=== PATIENT | female | born 1955 | race Native Hawaiian/Other Pacific Islander ===

== ENCOUNTER 2016-09-07 16:10 | Inpatient (IN) | payer BC ==
[~2016-09-07] VITALS: Ht 162.6 cm; Wt 59.0 kg
[~2016-09-07 16:10] MED LIST: LORAZEPAM0.5 MG OR; METOPRL/HCTZ1 TA1 OR
--- NOTE | 2016-09-07 16:30 | NUR ---
PT TO ROOM 1112 VIA WC. PT ALERT AND ORIENTED. ASSESSMENT COMPLETE. IV STARTED TO LEFT WRIST WITH LABS DRAWN. UA COLLECTED. AT BS. DR ESQUIVEL/PATRICIO AT BS. PT C/O MILD ABD PAIN. ORIENTED PT TO ROOM AND CONTROLS. PT VERBALIZED UNDERSTANDING. BED LOW, CALL LIGHT WITHIN REACH
[2016-09-07 16:54] VITALS: BP 110/70; TEMP 98.5; Ht 162.6 cm; Wt 59.0 kg
[2016-09-07 17:19] LABS: PLATELET COUNT 328 K/uL (152-353)
[2016-09-07 17:27] LABS: POTASSIUM 2.7 mmol/L (3.6-5.2)
[2016-09-07 20:10] VITALS: BP 104/65; TEMP 98.6
[2016-09-08] VITALS (12 sets, daily range): BP systolic 107–125; BP diastolic 67–75; TEMP 97.9–99.1
[2016-09-08] MEDS ORDERED: LORA1TAB17 PO (01:00)
[2016-09-08] MEDS ORDERED: METO50TA63 PO (01:04)
[2016-09-08] MEDS ORDERED: HYDR25TA60 PO (01:05)
[2016-09-08 05:50] LABS: PLATELET COUNT 298 K/uL (152-353)
[2016-09-08 05:59] LABS: POTASSIUM 3.3 mmol/L (3.6-5.2); SODIUM 139 mmol/L (136-145)
--- NOTE | 2016-09-08 09:01 | NUR ---
[address] SANCHEZ OF CONSULT ORDERD PER DR ESQUIVEL. MESSAGE LEFT WITH KEITH NAVA CRNA.
--- NOTE | 2016-09-08 15:14 | NUR ---
1330 DR SANCHEZ HERE IN ROOM AT THIS TIME FOR CONSULT. PT AGGREED TO SURGERY PER DR SANCHEZ BUT DEMANDING TO SPEAK TO DR SANCHEZ PRIOR TO GOING TO OR. 1430 DR SANCHEZ SPEAKING TO AND SON CONCERNING SURGERY. 1445 PT TO OR VIA BED PER OR CREW. PT ALERT NO DISTRESS NOTED
--- NOTE | 2016-09-08 18:08 | NUR ---
1645 REPORT REC'D FROM PATRICIO IN OR ON PT. 1705 PT BACK IN ROOM FROM OR VIA BED PER OR CREW IN BED. PT DROWSY RESPONDS EASILY TO VERBAL STIMULI. 1710 NOTIFIED PER VIPIN ARMAS PT'S O2 SATS ON RA 89%. PT PLACED ON O2 PER NC AT 2L SATS UP TO 91-92. INCREASED O2 TO 3 L/NC PT'S SATS INCREASED TO 94%. SWAPNIL DRAIN INTACT TO RT LOWER ABD. BULB NOTED TO BE COMPLETLY FULL. SWAPNIL DRAIN EMPTIED AT THIS TIME. BLOODY DRAINAGE NOTED TO BE IN BULB SYRINGE. WILL CON'T TO MONITOR
[2016-09-09 00:25] VITALS: BP 103/57; TEMP 98
[2016-09-09 04:00] VITALS: BP 107/64; TEMP 97.9
[2016-09-09 05:21] LABS: PLATELET COUNT 282 K/uL (152-353)
[2016-09-09 05:58] LABS: POTASSIUM 3.9 mmol/L (3.6-5.2); SODIUM 141 mmol/L (136-145)
[2016-09-09 07:48] VITALS: BP 108/67; TEMP 98.9
[2016-09-09 12:00] VITALS: BP 117/71; TEMP 98.1
[2016-09-09 16:00] VITALS: BP 122/65; TEMP 97.9
--- NOTE | 2016-09-09 16:12 | NUR ---
DR SANCHEZ AT BS. DRESSING REMOVED. NEW DRESSING APPLIED. PT INFORMED OF ADVANCING DIET TO FULL LIQUID.
[2016-09-09 19:48] VITALS: BP 106/64; TEMP 98.1
[2016-09-10] VITALS: BP 97/60; TEMP 98.8
[2016-09-10 04:00] VITALS: BP 112/69; TEMP 98.7
[2016-09-10 05:13] LABS: POTASSIUM 3.7 mmol/L (3.6-5.2); SODIUM 141 mmol/L (136-145)
[2016-09-10 05:15] LABS: PLATELET COUNT 270 K/uL (152-353)
[2016-09-10 07:56] VITALS: BP 123/72; TEMP 97.6
[2016-09-10] MEDS ORDERED: [UNRECOGNIZED DRUG - OTHER] OR (09:52)
--- NOTE | 2016-09-10 11:30 | NUR ---
DRESSING APPLIED TO SWAPNIL DRAIN SITE. SEROSANGINEOUS DRAINAGE LEAKS FROM INSERTION SITE. MD AWARE. SWAPNIL SUCTION WORKING PROPERLY AND DRAINAGE OBTAINED FROM BULB.
[2016-09-10 12:17] VITALS: BP 112/71; TEMP 97.7
[2016-09-10 16:05] VITALS: BP 121/73; TEMP 98.8
[2016-09-10 20:00] VITALS: BP 118/74; TEMP 99.2
[2016-09-11] VITALS: BP 124/74; TEMP 98.5
[2016-09-11 04:00] VITALS: BP 134/80; TEMP 98.5
[2016-09-11 05:19] LABS: PLATELET COUNT 294 K/uL (152-353)
[2016-09-11 05:25] LABS: POTASSIUM 3.6 mmol/L (3.6-5.2); SODIUM 140 mmol/L (136-145)
[2016-09-11 08:07] VITALS: BP 111/65; TEMP 98.1
--- NOTE | 2016-09-11 09:00 | NUR ---
CHANGED DRESSING TO SWAPNIL DRAIN SITE OF OLD DRESSING SATURATED WITH SEROSANGINEOUS DRAINAGE. DRAIN GAUZE PLACED AROUND SITE AND COVERED WITH ABD PAD.
[2016-09-11 12:00] VITALS: BP 118/77; TEMP 98
--- NOTE | 2016-09-11 14:30 | NUR ---
D/C INSTRUCTIONS GIVEN TO PT WITH RX ATTACHED. IV D/C'D 20 L FA CATH TIP INTACT. AWAITING AT TRANSPORT HOME.
== END 2016-09-11 15:23 | disposition home or self-care (01) | DRG 339 ==
LOC: MED/SURG 16:10
PROVIDERS: Emergency Medicine; ADMIT Nurse Practitioner Family
PROC: 0DTJ4ZZ Resection of Appendix, Percutaneous Endoscopic Approach (ICD-10-PCS; principal; 2016-09-08)
DX: K35.3 Acute appendicitis with localized peritonitis (principal); J98.11 Atelectasis; D72.828 Other elevated white blood cell count; R50.9 Fever, unspecified
CPT/HCPCS: 36415; 80048; 80053; 81000; 82150; 82272; 83516; 83690; 83735; 85007; 85027; 86255; 86318; 86671; 96365; 96367; 96372; 96375; C1729; J0330; J0500; J0690; J0744; J1100; J1170; J1644; J1885; J2001; J2250; J2270; J2405; J2704; J2710; J2765; J2780; J3010; J3475; J3490

== ENCOUNTER 2016-09-27 15:03 | Outpatient (CLI) | payer BC ==
[~2016-09-27 15:03] MED LIST changes: +HYDR25TA60 PO; +LORA1TAB17 PO; +METO50TA63 PO; +[UNRECOGNIZED DRUG - OTHER] OR
[2016-09-27 15:10] LABS: PLATELET COUNT 382 K/uL (152-353)
[2016-09-27 15:19] LABS: SODIUM 135 mmol/L (136-145)
== END 2016-09-27 16:00 | disposition home or self-care (01) ==
LOC: LAB 15:03
PROVIDERS: Nurse Practitioner Family
DX: K35.2 Acute appendicitis with generalized peritonitis (principal); R11.0 Nausea
CPT/HCPCS: 80053; 85027

== ENCOUNTER 2019-05-11 09:56 | Outpatient (CLI) | payer BC | END 2019-05-11 19:26 | disposition home or self-care (01) | LOC: CT 09:56 | DX: N83.291 Other ovarian cyst, right side (principal); N95.1 Menopausal and female climacteric states; R97.8 Other abnormal tumor markers | CPT/HCPCS: 36415; 82565; 84520; Q9963 ==

== ENCOUNTER 2022-02-19 10:57 | Outpatient (CLI) | payer OTHER | END 2022-02-19 20:33 | disposition home or self-care (01) | LOC: RAD 10:57 | PROVIDERS: ATTEND Nurse Practitioner Family | DX: Z13.820 Encounter for screening for osteoporosis (principal); N95.8 Other specified menopausal and perimenopausal disorders ==

== ENCOUNTER 2022-06-17 16:38 | Outpatient (CLI) | payer OTHER ==
[2022-06-17 16:59] LABS: PLATELET COUNT 290 K/uL (152-353)
[2022-06-17 17:09] LABS: POTASSIUM 3.9 mmol/L (3.6-5.2)
== END 2022-06-17 20:46 | disposition home or self-care (01) ==
LOC: CT 16:38
PROVIDERS: ATTEND Internal Medicine
DX: N20.0 Calculus of kidney (principal); M54.59 Other low back pain
CPT/HCPCS: 36415; 80053; 82150; 83690; 85027